=== PATIENT | female | born 1965 | race Caucasian/White ===

== ENCOUNTER 2023-03-14 20:43 | Emergency (ER) | payer BC, OTHER ==
[~2023-03-14] VITALS: Ht 162.6 cm; Wt 85.0 kg
[2023-03-14 21:11] VITALS: BP 134/67; PULSE 74; RESP 16; TEMP 97.9; O2SAT 98
== END 2023-03-15 02:08 | disposition left against medical advice (07) ==
LOC: ER 20:43
DX: Z53.21 Procedure and treatment not carried out due to patient leaving prior to being seen by health care provider (principal)
CPT/HCPCS: 99281